=== PATIENT | male | born 1955 | race Caucasian/White ===

== ENCOUNTER 2016-08-06 14:14 | Emergency (ER) | payer BC ==
[~2016-08-06 14:14] MED LIST: K-DUR TAB 20 M20 MEQ PO; LISINOPRIL20 MG PO; LOPRESSOR 50 MG50 MG PO; MAGNESIUM400 MG PO; NEXIUM40 MG PO; NORVASC 5 MG TAB5 MG PO; PROBIOTIC1 EACH PO
== END 2016-08-06 16:45 | disposition home or self-care (01) ==
LOC: ER1 14:14
DX: M79.652 Pain in left thigh (principal); I10 Essential (primary) hypertension; K21.9 Gastro-esophageal reflux disease without esophagitis; Z79.899 Other long term (current) drug therapy
CPT/HCPCS: 73552; 73564; 96372; 99283; J1885

== ENCOUNTER → 2016-08-07 | Outpatient (CLI) | payer BC ==
[~2016-08-07] MED LIST changes: +ASPIRIN CHEWABL81 MG PO; +BRILINTA90 MG PO; +ESOMEPRAZOLE MA40 MG PO; +FAMOTIDINE40 MG PO; +IBUPROFEN600 MG PO; +PROBIOTIC1 EAC3 PO; +PROTONIX40 MG PO; +ZETIA10 MG PO
== END ==
LOC: US 16:24
DX: M79.604 Pain in right leg (principal)
CPT/HCPCS: 93971

== ENCOUNTER 2016-09-28 16:59 | Inpatient (IN) | payer BC ==
[~2016-09-28] VITALS: Ht 182.9 cm; Wt 91.3 kg
[~2016-09-28 16:59] MED LIST changes: -ASPIRIN CHEWABL81 MG PO; -BRILINTA90 MG PO; -ESOMEPRAZOLE MA40 MG PO; -FAMOTIDINE40 MG PO; -IBUPROFEN600 MG PO; -PROBIOTIC1 EAC3 PO; -PROTONIX40 MG PO; -ZETIA10 MG PO
[2016-09-28 17:29] LABS: RED BLOOD COUNT 4.62 M/UL (4.20-5.50); WHITE BLOOD COUNT 9.9 K/UL (4.5-11.0)
[2016-09-28 18:15] LABS: BUN/CREATININE RATIO 9 (0-10)
[2016-09-28] MEDS ORDERED: NORVASC 5 MG TAB5 MG PO (21:28)
[2016-09-28] MEDS ORDERED: ESOMEPRAZOLE MA40 MG PO (21:28)
[2016-09-28] MEDS ORDERED: FAMOTIDINE40 MG PO ×2 (21:29→21:32)
[2016-09-28] MEDS ORDERED: LISINOPRIL20 MG PO (21:29)
[2016-09-28] MEDS ORDERED: PROBIOTIC1 EAC3 PO (21:33)
[2016-09-28] MEDS ORDERED: IBUPROFEN600 MG PO (21:34)
[2016-09-29 05:15] LABS: HEMOGLOBIN 11.7 gm/dl (14.0-17.5); RED BLOOD COUNT 4.2 M/UL (4.20-5.50); WHITE BLOOD COUNT 11.6 K/UL (4.5-11.0)
[2016-09-29 05:49] LABS: BUN/CREATININE RATIO 8 (0-10)
[2016-09-29] MEDS ORDERED: LOPRESSOR 50 MG50 MG PO (21:29)
[2016-09-29] MEDS ORDERED: MAGNESIUM400 MG PO (21:33)
[2016-09-30] MEDS ORDERED: ASPIRIN CHEWABL81 MG PO (14:41)
[2016-09-30] MEDS ORDERED: PROTONIX40 MG PO (14:43)
[2016-09-30] MEDS ORDERED: BRILINTA90 MG PO (14:44)
[2016-09-30] MEDS ORDERED: ZETIA10 MG PO (14:45)
== END 2016-09-30 15:21 | disposition home or self-care (01) | DRG 249 ==
LOC: ER1 16:59 → ZEROF 18:43 → ER1 19:00 → CCU 20:52
PROVIDERS: Emergency Medicine; Internal Medicine; ADMIT Hospitalist
PROC: 4A023N8 Measurement of Cardiac Sampling and Pressure, Bilateral, Percutaneous Approach (ICD-10-PCS; principal; 2016-09-28)
PROC: 02703DZ Dilation of Coronary Artery, One Artery with Intraluminal Device, Percutaneous Approach (ICD-10-PCS; 2016-09-28)
PROC: B2111ZZ Fluoroscopy of Multiple Coronary Arteries using Low Osmolar Contrast (ICD-10-PCS; 2016-09-28)
DX: I21.4 Non-ST elevation (NSTEMI) myocardial infarction (principal); I20.0 Unstable angina; Z87.891 Personal history of nicotine dependence; R06.02 Shortness of breath; E11.9 Type 2 diabetes mellitus without complications; E83.42 Hypomagnesemia; I10 Essential (primary) hypertension; E78.5 Hyperlipidemia, unspecified; K58.9 Irritable bowel syndrome, unspecified; J38.7 Other diseases of larynx; Z79.899 Other long term (current) drug therapy; Z79.82 Long term (current) use of aspirin
CPT/HCPCS: ECHO; 36415; 71010; 80048; 80053; 80061; 82550; 82553; 82962; 83036; 83735; 83874; 84443; 84484; 85025; 85027; 85347; 85610; 85730; 92928; 93005; 93306; 96374; 99285; C1725; C1757; C1769; C1876; C1887; C1894; J0461; J1327; J1644; J2250; J3010; J7040; Q9965